=== PATIENT | female | born 1985 | race Caucasian/White ===

== ENCOUNTER → 2016-07-19 | Outpatient (CLI) | payer BC ==
[~2016-07-19] MED LIST: SODIUM CHLORIDE 0.9% 250 ML in EMPTY BAG 1 BAG IV PRN; SODIUM CHLORIDE 0.9% 500 ML in EMPTY BAG 1 BAG IV PRN
[2016-07-19 10:30] VITALS: TEMP 97.8
[2016-07-19 11:49] VITALS: RESP 18
[2016-07-19 12:09] VITALS: BP 103/71; PULSE 70
== END | disposition home or self-care (01) ==
LOC: PROCWHC3 10:15
PROVIDERS: ATTEND Internal Medicine Gastroenterology
DX: K50.10 Crohn's disease of large intestine without complications (principal)
CPT/HCPCS: 96361; 96413; 96415; J1745

== ENCOUNTER → 2016-09-23 | Outpatient (CLI) | payer BC ==
[2016-09-23 10:50] VITALS: TEMP 97.8
[2016-09-23 11:19] VITALS: RESP 18
[2016-09-23 12:11] VITALS: BP 103/72; PULSE 65
== END | disposition home or self-care (01) ==
LOC: PROCWHC3 10:28
PROVIDERS: ATTEND Internal Medicine Gastroenterology
DX: K50.10 Crohn's disease of large intestine without complications (principal)
CPT/HCPCS: 96413; 96415; J1745

== ENCOUNTER → 2016-11-18 | Outpatient (CLI) | payer BC ==
[2016-11-18 10:55] VITALS: TEMP 98.6
[2016-11-18 12:00] VITALS: BP 109/77; PULSE 67; RESP 18
== END | disposition home or self-care (01) ==
LOC: PROCWHC3 10:33
PROVIDERS: ATTEND Internal Medicine Gastroenterology
DX: K50.10 Crohn's disease of large intestine without complications (principal)
CPT/HCPCS: 96413; 96415; J1745

== ENCOUNTER → 2017-01-13 | Outpatient (CLI) | payer BC ==
[~2017-01-13] MED LIST changes: -SODIUM CHLORIDE 0.9% 250 ML in EMPTY BAG 1 BAG IV PRN
[2017-01-13 11:05] VITALS: RESP 16; TEMP 97.9
[2017-01-13 12:32] VITALS: BP 102/62; PULSE 65
== END ==
LOC: PROCWHC3 10:47
PROVIDERS: ATTEND Internal Medicine Gastroenterology
DX: Z51.11 Encounter for antineoplastic chemotherapy (principal); K50.10 Crohn's disease of large intestine without complications
CPT/HCPCS: 96413; 96415; J1745

== ENCOUNTER → 2017-02-08 | Outpatient (CLI) | payer BC ==
--- NOTE | 2017-02-08 15:03 | XR ---
EXAMINATION TYPE: XR chest 2V DATE OF EXAM: 02/08/2017 COMPARISON: Prior chest x-ray 04/26/2013 HISTORY: Follow up for high risk medicines for Crohn's disease, routine physical TECHNIQUE: Frontal and lateral views of the chest are obtained. FINDINGS: There is no focal air space opacity, pleural effusion, or pneumothorax seen. The cardiac silhouette size is within normal limits. The osseous structures are intact. IMPRESSION: No acute cardiopulmonary process.
== END | disposition home or self-care (01) ==
LOC: RADXRYALE 14:16
PROVIDERS: ATTEND Internal Medicine Gastroenterology
DX: Z51.81 Encounter for therapeutic drug level monitoring (principal); Z79.899 Other long term (current) drug therapy
CPT/HCPCS: 71020

== ENCOUNTER → 2017-03-15 | Outpatient (CLI) | payer BC | END | disposition home or self-care (01) | LOC: LABWHC1 11:25 | PROVIDERS: ATTEND Obstetrics & Gynecology | DX: O02.1 Missed abortion (principal) | CPT/HCPCS: 36415; 84702 ==

== ENCOUNTER → 2017-03-17 | Outpatient (CLI) | payer BC | END | disposition home or self-care (01) | LOC: LABWHC1 16:09 | PROVIDERS: ATTEND Obstetrics & Gynecology | DX: Z34.90 Encounter for supervision of normal pregnancy, unspecified, unspecified trimester (principal); Z3A.00 Weeks of gestation of pregnancy not specified | CPT/HCPCS: 36415; 84702 ==

== ENCOUNTER → 2017-03-19 | Outpatient (CLI) | payer BC | END | disposition home or self-care (01) | LOC: LABWHC1 12:57 | PROVIDERS: ATTEND Obstetrics & Gynecology | DX: Z34.90 Encounter for supervision of normal pregnancy, unspecified, unspecified trimester (principal); Z3A.00 Weeks of gestation of pregnancy not specified | CPT/HCPCS: 36415; 84702 ==

== ENCOUNTER → 2017-03-28 | Outpatient (CLI) | payer BC ==
[2017-03-28 13:26] LABS: CH 31.1; CHCM 34.2; HCT 37.3 % (34.0-46.0); HDW 2.53; HGB 12.6 gm/dL (11.4-16.0); MCH 30.8 pg (25.0-35.0); MCHC 33.8 g/dL (31.0-37.0); MCV 91.2 fL (80.0-100.0); Mean Platelet Volume 6.6; RBC 4.09 m/uL (3.80-5.40); RDW 12.1 % (11.5-15.5); WBC 5.2 k/uL (3.8-10.6); WBC (Perox) 5.22
[2017-03-28 15:43] LABS: Add Differential Manual Differential
[2017-03-28 15:49] LABS: Manual Review Performed; Nucleated Red Blood Cells 0 /100 WBC (0-0); RBC Morphology Normal; Total Cells Counted 100
== END | disposition home or self-care (01) ==
LOC: LABPAT 12:17
PROVIDERS: ATTEND Obstetrics & Gynecology
DX: Z01.812 Encounter for preprocedural laboratory examination (principal)
CPT/HCPCS: 36415; 85025

== ENCOUNTER 2017-03-29 09:29 | Day surgery (SDC) | payer BC ==
[2017-03-25 12:19] VITALS: BMI 29.7
[~2017-03-29 09:29] MED LIST changes: +DEXAMETHASONE SOD PHOSPHATE 10 MG/ML 1 ML VIAL IV ONE; +LACTATED RINGERS 1,000 ML IV SCH; +MIDAZOLAM 2 MG/2 ML VIAL IV PRN; +ONDANSETRON 4 MG/2 ML VIAL IVP ONE; +Pre Op ABX Message 1 EACH MISC MISCELLANE ONE; +SCOPOLAMINE 1.5MG/72HR PATCH TRANSDERM ONE; -SODIUM CHLORIDE 0.9% 500 ML in EMPTY BAG 1 BAG IV PRN
[2017-03-29 09:52] VITALS: RESP 16
[2017-03-29] MEDS ORDERED: LIDOCAINE 1% 20 ML VIAL (10MG/ML) FOR IV START INTRADERMA ONE (09:52)
[2017-03-29] MEDS ORDERED: PROPOFOL 10 MG/ML 20 ML VIAL IV ONE (10:59)
[2017-03-29] MEDS ORDERED: KETOROLAC 30 MG/ML 1 ML VIAL ONE (10:59)
[2017-03-29] MEDS ORDERED: LIDOCAINE 1% INJ 10MG/ML (20 ML MDV) ONE (10:59)
[2017-03-29] MEDS ORDERED: fentaNYL (PF) 50 MCG/ML 2 ML AMP ONE (10:59)
[2017-03-29] MEDS ORDERED: MIDAZOLAM 2 MG/2 ML VIAL ONE (10:59)
--- NOTE | 2017-03-29 11:18 | P.OP ---
Date of Procedure: 03/29/17 Preoperative Diagnosis: Missed AB, Rh- Postoperative Diagnosis: Same Procedure(s) Performed: Suction D&C, RhoGAM administration Anesthesia: ROBERTA Surgeon: Rosalia Dooley Estimated Blood Loss (ml): 100 IV fluids (ml): 300 Urine output (ml): 100 Pathology: other (Products of conception) Condition: stable Disposition: PACU Description of Procedure: Patient is brought to the operating suite and placed in the dorsal lithotomy position. Antibiotics are not deemed necessary. She is Rh-, broke and will be given in recovery. The appropriate timeout is performed to assure proper patient and procedural identification. The cervix, vagina, abdomen and perineal bodies are all prepped and draped in usual sterile fashion. Examination under anesthesia reveals an anteverted uterus of approximately 6-8 week size. Weighted speculum was placed into the vagina. Bladder is drained for 100 mL of clear yellow urine. Anterior lip of the cervix is grasped with a double-tooth tenaculum. Uterus sounds to a depth of 10 cm in the anteverted position. The cervix is gently and systematically dilated using Hanks dilators. A #8 curved curet is placed to the dome of the fundus and under appropriate pressures the uterus is completely evacuated. A medium curette is used to assure that no retained products of conception remaining. Estimated blood loss is 100 mL's. A moderate amount of tissue is sent to pathology for evaluation. At the end of the procedure, all sponge needle and instrument counts are correct. Total estimated blood loss 100 mL's. Fluid replacement 300 mL's. Toradol is given prior to leaving the operative suite. Patient is brought back to recovery room in very good condition with stable vital signs including blood pressure 105/66, pulse 76, 100% O2 saturation. Patient will follow-up with me in the office in 2 weeks.
[2017-03-29] MEDS ORDERED: Rhogam IMMUNE GLOBULIN 1,500 UNIT/1 ML IM ONE (11:26)
[2017-03-29 11:35] VITALS: TEMP 98
[2017-03-29] MEDS: HYDROmorphone 0.5 MG/0.5 ML SYRINGE IVP PRN ×2 (11:57→12:03)
[2017-03-29 12:19] VITALS: BP 102/64
[2017-03-29] MEDS ORDERED: IBUPROFEN 200 MG TAB PO ONE (12:34)
[2017-03-29 12:40] VITALS: PULSE 64
[2017-04-08 08:48] LABS: Mis test requested (Non-blood) DNA PLOIDY
== END 2017-03-29 12:58 | disposition home or self-care (01) ==
LOC: OR 09:29
PROVIDERS: ATTEND Obstetrics & Gynecology
DX: O02.1 Missed abortion (principal); Z3A.01 Less than 8 weeks gestation of pregnancy; Z87.59 Personal history of other complications of pregnancy, childbirth and the puerperium; Z87.891 Personal history of nicotine dependence; K50.90 Crohn's disease, unspecified, without complications; E28.2 Polycystic ovarian syndrome; Z80.0 Family history of malignant neoplasm of digestive organs; Z80.49 Family history of malignant neoplasm of other genital organs; Z79.899 Other long term (current) drug therapy; Z88.0 Allergy status to penicillin
CPT/HCPCS: 88182; 86900; 86901; 88305; 86850; 59820; J2791; J2250; J1100; J2405; J2001; J3010; J1885; J2704; J1170

== ENCOUNTER → 2017-11-16 | Outpatient (CLI) | payer OTHER ==
--- NOTE | 2017-11-16 12:01 | US ---
EXAMINATION TYPE: Transabdominal DATE OF EXAM: 09/06/17 COMPARISON: NONE CLINICAL HISTORY: O46.91 BLEEDING AND SPOTTING. EXAM PERFORMED: Transvaginal (TV) and Transabdominal (TA) EXAM MEASUREMENTS: GESTATIONAL AGE / DATING Physician Established: Not yet established Dates by LMP: (7 weeks/5 days) EDC: 06/30/2018 Dates by First Scan: No previous this is first scan Dates by Current Scan for: no pole identified MATERNAL ANATOMY Uterus: 10.5 x 4.0 x 4.8 cm Right Ovary: 2.8 x 2.8 x 2.0 cm Left Ovary: 2.8 x 2.6 x 1.9 cm Post CDS / Adnexa: wnl Presence of free fluid: none GESTATION / SURVEY MSD: 0.4 cm (4 weeks/6 days) Date of LMP: 09/23/2017 Beta HcG (if available): not available There is a tiny sac within uterus which could represent a gestational sac that measures 4 weeks 6 day s. This is low-lying. IMPRESSION: Low-lying small intraendometrial fluid collection that could represent early , spontaneous a bortion, and embryonic , or pseudogestational sac of ectopic as there is not yet v isualization of a yolk sac, pole, or heart rate. Correlation with beta hCG level is recommended . Additionally short-term follow-up pelvic ultrasound in 5-7 days is recommended in addition to repea t serum serial beta hCGs.
[2017-11-16 12:52] LABS: HCT 38.1 % (34.0-46.0); HGB 13.7 gm/dL (11.4-16.0); MCHC 35.9 g/dL (31.0-37.0); MCV 89.3 fL (80.0-100.0); Mean Platelet Volume 6.4; Platelet Count 365 k/uL (150-450); RBC 4.27 m/uL (3.80-5.40); RDW 13.2 % (11.5-15.5)
== END | disposition home or self-care (01) ==
LOC: RADUSWWP 11:17
PROVIDERS: ATTEND Obstetrics & Gynecology
DX: O46.91 Antepartum hemorrhage, unspecified, first trimester (principal); Z3A.00 Weeks of gestation of pregnancy not specified
CPT/HCPCS: 76801; 76817; 84702; 85027; 86850; 86900; 86901

== ENCOUNTER → 2017-11-18 | Outpatient (CLI) | payer OTHER | END | disposition home or self-care (01) | LOC: LABWHC1 08:40 | PROVIDERS: ATTEND Obstetrics & Gynecology | DX: O09.299 Supervision of pregnancy with other poor reproductive or obstetric history, unspecified trimester (principal); O20.0 Threatened abortion; Z3A.00 Weeks of gestation of pregnancy not specified | CPT/HCPCS: 36415; 84144; 84702 ==

== ENCOUNTER 2019-01-18 10:43 | Inpatient (IN) | payer OTHER ==
[2019-01-31 14:44] VITALS: BMI 33.2
[2019-02-01] MEDS ORDERED: CITRIC ACID-SODIUM CITRATE 15 ML CUP PO ONE ×2 (03:29→04:35)
[2019-02-01 03:45] LABS: Basophils % (A) 0 %; Eosinophils # (A) 0.1 k/uL (0-0.7); Eosinophils % (A) 1 %; HGB 13.4 gm/dL (11.4-16.0); Lymphocytes # (A) 2.7 k/uL (1.0-4.8); Lymphocytes % (A) 33 %; MCH 32.3 pg (25.0-35.0); MCHC 35.3 g/dL (31.0-37.0); MCV 91.3 fL (80.0-100.0); Mean Platelet Volume 7.2; Monocytes # (A) 0.4 k/uL (0-1.0); Monocytes % (A) 5 %; Neutrophils # (A) 4.6 k/uL (1.3-7.7); Neutrophils % (A) 57 %; Platelet Count 337 k/uL (150-450); RBC 4.17 m/uL (3.80-5.40); WBC 8.1 k/uL (3.8-10.6)
[2019-02-01] MEDS ORDERED: LACTATED RINGERS 1,000 ML IV SCH (04:45)
[2019-02-01] MEDS ORDERED: METHYLERGONOVINE 0.2 MG/ML 1 ML AMP IM PRN (05:34)
[2019-02-01] MEDS ORDERED: OXYTOCIN 10 UNIT/ML 1 ML VIAL IM PRN (05:34)
[2019-02-01] MEDS ORDERED: CARBOPROST TROMETHAMINE 250 MCG/ML 1 ML AMP IM PRN (05:34)
[2019-02-01] MEDS ORDERED: LIDOCAINE 0.5% (PF) 5 MG/ML (50 ML SDV) SQ PRN (05:34)
[2019-02-01] MEDS ORDERED: TERBUTALINE 1 MG/ML VIAL SQ PRN (05:34)
--- NOTE | 2019-02-01 06:50 | P.HPOB ---
History of Present Illness H&P Date: 02/01/19 Chief Complaint: 42-0/7 weeks, labor The patient is a 33-year-old 4 para 1021 admitted at 42-0/7 weeks as established by last menstrual period and confirmed by second trimester ultrasound. She is admitted in active labor with all signs reassuring. She does have a history of a previous section and had a planned repeat section for this morning. As she presented in labor and had intended originally to have a vaginal trial of labor, she was allowed to continue to labor and has made good progress to the active phase of labor. Her has otherwise been uncomplicated. She is in the category of advanced maternal age and underwent trisomy screening which was entirely negative. She additionally is known to be Rh- and received RhoGAM at 28 weeks. On labor and delivery, all signs reassuring. She had spontaneous rupture of membranes at advanced dilation and was found with light meconium-stained fluid. Group B strep status is negative. Obstetrical history: 4 para 1021 with 1 term section followed by 2 miscarriages, one of which required D&C. Current statistics listed in history present illness. EDC of 01/18/2019 was established by justina Rangel. And confirmed by second trimester ultrasound. Laboratory workup done traits of blood type of O- with a negative antibody screen. Rubella status is immune. Remainder of laboratory workup was within normal limits. One hour Glucola was within normal limits and group B strep status is negative. Gynecologic history: Unremarkable with no history of any infections to include STDs. Review of Systems Review of systems is confined to history of present illness. Past Medical History Additional Past Medical History / Comment(s): CROHNS. PCOS-ON METFORMIN (NOT DIABETIC) History of Any Multi-Drug Resistant Organisms: None Reported Past Surgical History: Section Additional Past Surgical History / Comment(s): colonoscopy Past Anesthesia/Blood Transfusion Reactions: No Reported Reaction Past Psychological History: Anxiety Smoking Status: Former smoker Past Alcohol Use History: None Reported Additional Past Alcohol Use History / Comment(s): smoked for about 8-10 years 1/2 ; quit 2010. NO ALCOHOL AT THIS TIME Past Drug Use History: None Reported - Past Family History Mother Family Medical History: No Reported History Medications and Allergies Home Medications Medication Instructions Recorded Confirmed Type Pnv No.95/Ferrous Fum/Folic AC 1 each PO DAILY 01/31/19 01/31/19 History [ Multivitamin Tablet] metFORMIN HCL 1,000 mg PO BID 01/31/19 01/31/19 History Allergies Allergy/AdvReac Type Severity Reaction Status Date / Time Penicillins Allergy Anaphylaxis Verified 01/31/19 14:38 Exam Vital Signs Temp Pulse Resp BP Pulse Ox 02/01/19 03:28 97.8 F 83 16 122/82 98 Intake and Output 01/31/19 01/31/19 02/01/19 14:59 22:59 06:59 Other: # Voids 4 Weight 93.44 kg In general, this is a well-developed, well-nourished white female in no acute distress. Her heart has a regular rhythm and rate without murmur. Her lungs clear to auscultation bilaterally in all sofia. Her abdomen is gravid, nondistended, has normal active bowel sounds, soft, nontender, and without any palpable masses aside from uterine fundus. Her extremities are without any cyanosis, clubbing, or edema and are nontender to palpation bilaterally. Digital cervical examination demonstrates her cervix to be approximately 97 m dilated, 80-90% effaced, with the vertex in presentation at approximately 0 station. Spontaneous rupture of membranes is confirmed with mild meconium- stained fluid. Results Result Diagrams: 02/01/19 03:25 Assessment and Plan (1) Active labor at term Current Visit: Yes Status: Acute Code(s): FFC0101 - SNOMED Code(s): 23226152 (2) Post-dates Current Visit: Yes Status: Acute Code(s): O48.0 - POST-TERM SNOMED Code(s): 47320946 (3) Previous section Current Visit: Yes Status: Acute Code(s): Z98.891 - HISTORY OF UTERINE SCAR FROM PREVIOUS SURGERY SNOMED Code(s): 794818405 Plan: The patient is admitted for active management of labor. She will continue to have close maternal and surveillance and expectant management will be practiced. To this point, she has declined any options for analgesia. She is a good candidate for either epidural or IV analgesia should she so choose.
[2019-02-01] MEDS ORDERED: OXYTOCIN 30 UNITS/500 ML NS 30 UNIT in SALINE 1 500ML.BAG IV SCH (07:30)
[2019-02-01] MEDS ORDERED: diphenhydrAMINE 25 MG CAP PO PRN (08:22)
[2019-02-01] MEDS ORDERED: BENZOCAINE/MENTHOL SPRAY 1 GM/SPRAY AEROSOL TOPICAL PRN (08:22)
[2019-02-01] MEDS ORDERED: SIMETHICONE 80 MG CHEWABLE PO PRN (08:22)
[2019-02-01] MEDS ORDERED: LANOLIN CREAM 5 GM TUBE TOPICAL PRN (08:22)
[2019-02-01] MEDS ORDERED: HYDROCORTISONE 2.5% RECTAL CREAM 30 GM TUBE RECTAL PRN (08:22)
[2019-02-01] MEDS ORDERED: ACETAMINOPHEN TAB 325 MG TAB PO PRN (08:22)
[2019-02-01] MEDS ORDERED: ZOLPIDEM 5 MG TAB PO PRN (08:22)
[2019-02-01] MEDS ORDERED: diphenhydrAMINE 50 MG CAP PO PRN (08:22)
[2019-02-01] MEDS ORDERED: WITCH HAZEL 1 EACH MED..PAD TOPICAL PRN (08:22)
[2019-02-01] MEDS ORDERED: diphenhydrAMINE 50 MG/ML 1 ML VIAL IVP PRN ×2 (08:22)
--- NOTE | 2019-02-01 08:22 | P.PROBDLV ---
Vaginal Delivery Note - . Vaginal Delivery Note: This is a 33-year-old white female 4 para 10-1 EDC 01/18/2019 at 42 weeks gestation. Patient was originally scheduled for section, but came in in active labor and chose to . is remarkable for blood type O-, rubella status immune, group B strep cultures negative. Please see dictated history and physical for details. Spontaneous amniorrhexis revealed light meconium-stained fluid. Patient progressed well through the first stage of labor and declined option for analgesia. She became completely dilated at 0739 hours and began the second stage of labor at that time. Small amount of oxytocin augmentation was given. With excellent maternal expulsive efforts infant's head crowned. Perineal body was prepped and draped in usual sterile fashion. Infant delivered occiput anterior and restituted accordingly. There was a nuchal cord 1 that was reduced. The right or anterior shoulder was gently delivered from underneath the pubic symphysis at which time the oropharynx, nasopharynx, and external nares were bulb suctioned. Patient was officially delivered of a liveborn female at 0758 hours. Umbilical cord was doubly clamped and ligated, she was handed to waiting nurses for evaluation where scores of 9 and 9 at one and 5 minutes respectively were given. Infant weighs 9 lbs. 4 oz. or 4190 g. Placenta delivers spontaneously, it is inspected and noted to be intact, meconium-stained, trivascular cord at 0801 hrs. Uterus is now massaged. Several inspection of the cervix, vagina, perineum, periurethral, and perirectal areas revealed a small left labial laceration and a second-degree midline laceration. These were injected with lidocaine, and repaired in the usual fashion using 3-0 Vicryl suture for excellent reapproximation. Fundus is firm and in the midline, symmetric, 18 week size, nontender. Total estimated blood loss 250 mL's. All sponge needle and enhancement counts are correct. Patient and her family are allowed to begin the bonding experience in the LDR.
[2019-02-01] MEDS ORDERED: OXYTOCIN 20 UNITS/1000 ML NS 1,000 ML IV SCH (08:30)
[2019-02-01] MEDS: IBUPROFEN 600 MG TAB PO PRN ×2 (08:55→18:26)
[2019-02-01 11:23] VITALS: RESP 16
[2019-02-01] MEDS ORDERED: Rhogam IMMUNE GLOBULIN 1,500 UNIT/1 ML IM ONE (15:33)
[2019-02-02] MEDS: SENNOSIDES-DOCUSATE SODIUM 1 EACH TAB PO SCH ×2 (03:45→08:41)
[2019-02-02] MEDS: LACTATED RINGERS 1,000 ML IV SCH ×5 (03:46→03:50)
--- NOTE | 2019-02-02 08:22 | P.DS ---
Providers Date of admission: 02/01/19 03:08 Expected date of discharge: 02/02/19 Attending physician: Rosalia Dooley Primary care physician: Stated None Hospital Course: This is a 33-year-old white female 4 para 10-1 EDC 01/18/2019 at 42 weeks gestation. Patient presented in active spontaneous labor. remarkable for blood type O-, rubella status immune. Group B strep cultures negative. Please see dictated history and physical for details. Patient had history of previous section and was wishing . All risks and benefits discussed in detail. Patient progressed well through the first stage of labor and was judged to be completely dilated. She had a 19 minute second stage of labor and gave to a liveborn female . scores were 9 and 9 at one and 5 minutes respectively. There was a nuchal cord 1, estimated blood loss of 250 mL's. There was a small perineal laceration, second-degree, easily repaired. Infant weighed 4190 g or 9 lbs. 4 oz. Please see my dictated delivery note for details. This morning the patient is doing very well. She is voiding, ambulating and passing flatus without difficulty. Vital signs are stable and she is afebrile. Fundus is firm and in the midline, symmetric and 18 week size. Extremities are negative for edema. Chest is clear in all sofia. is doing well. Patient is choosing discharge home later today. She will follow-up in the office with me in 6 weeks. I have reminded her no intercourse, tampons or douching. She will use [id number] Motrin or Advil as needed for pain. She will continue taking her vitamin daily. I have reviewed with her options for contraception and she will discuss this further with me in the office in 6 weeks. Patient Condition at Discharge: Good Plan - Discharge Summary Discharge Rx Participant: Yes New Discharge Prescriptions: No Action metFORMIN HCL 1,000 mg PO BID Pnv No.95/Ferrous Fum/Folic AC [ Multivitamin Tablet] 1 each PO DAILY Discharge Medication List Pnv No.95/Ferrous Fum/Folic AC [ Multivitamin Tablet] 1 each PO DAILY 01/31/19 [History] metFORMIN HCL 1,000 mg PO BID 01/31/19 [History] Follow up Appointment(s)/Referral(s): Rosalia Dooley MD [STAFF PHYSICIAN] - 6 Weeks
[2019-02-02] MEDS: IBUPROFEN 600 MG TAB PO PRN (10:14)
[2019-02-02 16:26] VITALS: BP 111/70; PULSE 65; TEMP 98.3
== END 2019-02-02 18:00 | disposition home or self-care (01) | DRG 807 ==
LOC: 4FBP 02-01 03:08
PROVIDERS: ADMIT Obstetrics & Gynecology; ATTEND Obstetrics & Gynecology
PROC: 10E0XZZ Delivery of Products of Conception, External Approach (ICD-10-PCS; principal; 2019-02-01)
PROC: 0KQM0ZZ Repair Perineum Muscle, Open Approach (ICD-10-PCS; principal; 2019-02-01)
DX: O48.0 Post-term pregnancy (principal); Z37.0 Single live birth; O34.219 Maternal care for unspecified type scar from previous cesarean delivery; O69.81X0 Labor and delivery complicated by cord around neck, without compression, not applicable or unspecified; O70.1 Second degree perineal laceration during delivery; O77.0 Labor and delivery complicated by meconium in amniotic fluid; Z3A.42 42 weeks gestation of pregnancy; Z87.891 Personal history of nicotine dependence; Z79.84 Long term (current) use of oral hypoglycemic drugs; E28.2 Polycystic ovarian syndrome; Z88.0 Allergy status to penicillin
CPT/HCPCS: 85025; 85461; 86850; 86900; 86901

== ENCOUNTER → 2020-06-23 | Outpatient (CLI) | payer OTHER ==
--- NOTE | 2020-06-23 14:32 | XR ---
EXAMINATION TYPE: XR lumbosacral spine 5 views DATE OF EXAM: 06/23/2020 Comparison: None Clinical History: 35-year-old female M545, M2550 LBP, POLYARTHRALGIA Findings: Facet arthropathy lower lumbar spine. Mild endplate spondylosis throughout. Vertebral body heights ar e preserved and alignment is maintained. No pars interarticularis defect seen. 5 lumbar type vertebra l bodies. Impression: Mild scattered endplate spondylosis. Facet arthropathy lower lumbar spine. No vertebral compression c ollapse or malalignment.
--- NOTE | 2020-06-23 14:50 | XR ---
EXAMINATION TYPE: XR pelvis AP view DATE OF EXAM: 06/23/2020 COMPARISON: NONE HISTORY: 35-year-old female M545, M2550 LBP, POLYARTHRALGIA FINDINGS: The hips appears symmetric and intact. Pubic symphysis and SI joints are intact. No acute fracture, s ubluxation, or dislocation. IMPRESSION: No acute osseous abnormality seen.
--- NOTE | 2020-06-23 14:57 | XR ---
EXAMINATION TYPE: XR foot complete bilateral 3 views each side DATE OF EXAM: 06/23/2020 Comparison: None Clinical History: 35-year-old female M545, M2550 LBP, POLYARTHRALGIA Findings: No evidence for acute fracture, subluxation, or dislocation either side. No periostitis or osteolysis . No soft tissue calcifications. Joint spaces appear relatively maintained. Impression: No acute osseous abnormality on either side.
== END | disposition home or self-care (01) ==
LOC: RADXRYALE 11:45
PROVIDERS: ATTEND Internal Medicine Rheumatology
DX: M47.816 Spondylosis without myelopathy or radiculopathy, lumbar region (principal); M54.5 Low back pain; M25.50 Pain in unspecified joint
CPT/HCPCS: 72110; 72170

== ENCOUNTER → 2020-07-25 | Outpatient (CLI) | payer OTHER | END | disposition home or self-care (01) | LOC: LABWHC1 12:00 | PROVIDERS: ATTEND Internal Medicine | DX: K50.90 Crohn's disease, unspecified, without complications (principal) | CPT/HCPCS: 36415 ==

== ENCOUNTER → 2020-08-18 | Outpatient (CLI) | payer OTHER | END | disposition home or self-care (01) | LOC: LABWHC1 13:00 | PROVIDERS: ATTEND Internal Medicine Gastroenterology | DX: E66.9 Obesity, unspecified (principal); K50.90 Crohn's disease, unspecified, without complications | CPT/HCPCS: 36415; 85652; 86140; 86480 ==

== ENCOUNTER → 2021-10-06 | Outpatient (CLI) | payer OTHER ==
[2021-10-06 22:53] LABS: ALT 15 U/L (8-44); AST 18 U/L (13-35); Albumin 4.8 g/dL (3.8-4.9); Albumin/Globulin Ratio 1.73 (1.60-3.17); Alkaline Phosphatase 55 U/L (41-126); C Reactive Protein <0.30 mg/dL (0.00-0.80); Calcium 10.2 mg/dL (8.7-10.3); Carbon Dioxide 27.3 mmol/L (20.0-27.5); Chloride 103 mmol/L (96-109); Globulin 2.8 g/dL (1.6-3.3); Glucose 86 mg/dL (70-110); Non-African American GFR(CKD) 113.9 (60.0-200.0); Potassium 3.9 mmol/L (3.5-5.5); Sodium 140 mmol/L (135-145); Total Protein 7.6 g/dL (6.2-8.2)
[2021-10-06 23:02] LABS: Basophils # (A) 0.04 X 10*3/uL (0.00-0.10); Basophils % (A) 0.5 %; Eosinophils # (A) 0.04 X 10*3/uL (0.04-0.35); Eosinophils % (A) 0.5 %; HCT 38.9 % (37.2-46.3); HGB 12.9 g/dL (12.0-15.0); Immature Grans, Automated 0.3 %; Lymphocytes # (A) 3.76 X 10*3/uL (0.90-5.00); Lymphocytes % (A) 48.2 %; MCH 30.8 pg (27.0-32.0); MCHC 33.2 g/dL (32.0-37.0); MCV 92.8 fL (80.0-97.0); Monocytes # (A) 0.34 X 10*3/uL (0.20-1.00); Monocytes % (A) 4.4 %; NRBC Per 100 WBC 0 /100 WBCS (0.0-0.0); Neutrophils % (A) 46.1 %; Platelet Count 379 X 10*3/uL (140-440); RBC 4.19 X 10*6/uL (4.10-5.20); RDW 12.4 % (11.5-14.5)
[2021-10-07 00:11] LABS: Erythrocyte Sedimentation Rate 13 mm/Hr (0-20)
== END | disposition home or self-care (01) ==
LOC: LABWHC1 14:16
PROVIDERS: ATTEND Internal Medicine Gastroenterology
DX: K50.90 Crohn's disease, unspecified, without complications (principal); E66.9 Obesity, unspecified; M25.50 Pain in unspecified joint
CPT/HCPCS: 36415; 80053; 85025; 85652; 86140; 86480

== ENCOUNTER → 2022-09-14 | Outpatient (CLI) | payer OTHER ==
--- NOTE | 2022-09-14 14:26 | MM ---
Reason for Exam: Screening (asymptomatic). Baseline mammogram. Patient History: Menarche at age 12. First Full-Term at age 26. Patient has history of breast feeding. Paternal grandmother had ovarian cancer, age 52. Last menstrual period: 08/19/2022 Risk Values: Jen 5 year model risk: 0.5%. NCI Lifetime model risk: 10.2%. Prior Study Comparison: Patient's first Mammogram. Tissue Density: There are scattered fibroglandular densities. Findings: Analyzed By CAD. There is no suspicious group of microcalcifications or new suspicious mass in either breast. Overall Assessment: Negative, BI-RAD 1 Management: Screening Mammogram of both breasts in 1 year. A clinical breast exam by your physician is recommended on an annual basis and results should be correlated with mammographic findings. [facility] will attempt to contact patient to return for supplemental views and ultrasound if indicated. Electronically signed and approved by: Tommy Haider DO
== END | disposition home or self-care (01) ==
LOC: RADMAMWWP 13:04
PROVIDERS: ATTEND Obstetrics & Gynecology
DX: Z12.31 Encounter for screening mammogram for malignant neoplasm of breast (principal)
CPT/HCPCS: 77067

== ENCOUNTER → 2023-03-25 | Outpatient (CLI) | payer OTHER ==
--- NOTE | 2023-03-26 17:36 | CT ---
EXAMINATION TYPE: CT soft tissue neck w con DATE OF EXAM: 03/25/2023 COMPARISON: None HISTORY: enlarged lymph nodes CT DLP: 303.7 mGycm CONTRAST: Patient injected with 100 mL of Isovue 370. TECHNIQUE: Axial images at 3 mm thick sections. Reconstructed images in the coronal plane and sagitt al plane are reviewed. FINDINGS: Limited CT sections are obtained the lung apices. The lung apices appear clear. CT neck: The torus tubarius and fossa of Rosenmuller are normal. [employer] spaces are normal. Para nasal sinuses and mastoid air cells are clear. Parotid glands appear normal and symmetrical. Submandibular glands, are normal. Parapharyngeal spac es are normal. No suspicious enlarged adenopathy is evident. There are scattered shotty lymph nodes present bilaterally. The hypopharynx appears within normal limits. Vocal cord level appear symmetrical. Thyroid as visualized is normal. Osseous structures appear unremarkable. Prevertebral space is normal. IMPRESSION: 1. Few scattered shotty lymph nodes present throughout the neck. No enlarged suspicious adenopathy is evident.
== END | disposition home or self-care (01) ==
LOC: RADCTMAIN 16:32
PROVIDERS: ATTEND Otolaryngology
DX: R59.0 Localized enlarged lymph nodes (principal)
CPT/HCPCS: 70491; Q9967

== ENCOUNTER → 2023-10-20 | Outpatient (CLI) | payer OTHER ==
[2023-10-20 18:04] LABS: Basophils # (A) 0.05 X 10*3/uL (0.00-0.10); Basophils % (A) 0.5 %; Eosinophils # (A) 0.07 X 10*3/uL (0.04-0.35); Eosinophils % (A) 0.7 %; HCT 39.7 % (37.2-46.3); HGB 13.2 g/dL (12.0-15.0); Lymphocytes % (A) 28.2 %; MCHC 33.2 g/dL (32.0-37.0); MCV 93.2 FL (80.0-97.0); Mean Platelet Volume 9.6 FL (9.5-12.2); Monocytes # (A) 0.79 X 10*3/uL (0.20-1.00); Monocytes % (A) 7.7 %; NRBC Per 100 WBC 0 X 10*3/uL (0.00-0.01); Neutrophils # (A) 6.47 X 10*3/uL (1.80-7.70); Neutrophils % (A) 62.7 %; Platelet Count 555 X 10*3/uL (140-440); RBC 4.26 X 10*6/uL (4.10-5.20); RDW 13.3 % (11.5-14.5)
[2023-10-20 18:23] LABS: ALT 11 U/L (8-44); AST 17 U/L (13-35); Albumin 4.6 g/dL (3.8-4.9); Albumin/Globulin Ratio 1.53 Ratio (1.60-3.17); Alkaline Phosphatase 63 U/L (41-126); BUN/Creat Ratio 15.71 Ratio (12.00-20.00); Carbon Dioxide 24.2 mmol/L (21.6-31.8); Chloride 102 mmol/L (96-109); Glucose 87 mg/dL (70-110); Potassium 4.3 mmol/L (3.5-5.5); Sodium 141 mmol/L (135-145); Total Bilirubin 0.3 mg/dL (0.3-1.2); Total Protein 7.6 g/dL (6.2-8.2)
[2023-10-20 18:45] LABS: Erythrocyte Sedimentation Rate 15 mm/Hr (0-20)
== END | disposition home or self-care (01) ==
LOC: LABWHC1 12:01
PROVIDERS: ATTEND Internal Medicine Gastroenterology
DX: K50.90 Crohn's disease, unspecified, without complications (principal)
CPT/HCPCS: 36415; 80053; 85025; 85652; 86140; 86480